=== PATIENT | male | born 1985 | race Caucasian/White ===

== ENCOUNTER 2022-04-02 09:43 | Emergency (ER) | payer SELFPAY ==
[2022-04-02] MEDS ORDERED: Boostrix 0.5 ML (Tdap) VIAL ONE (10:32)
== END 2022-04-02 11:00 | disposition home or self-care (01) ==
LOC: ERS 09:43
DX: S81.832A Puncture wound without foreign body, left lower leg, initial encounter (principal); W45.0XXA Nail entering through skin, initial encounter; Z23 Encounter for immunization
CPT/HCPCS: 90471; 90715